=== PATIENT | female | born 1965 | race Two or more races ===

== ENCOUNTER 2017-10-10 02:07 | Emergency (ER) | payer MEDICAID ==
[~2017-10-10] VITALS: Ht 160 cm; Wt 63.5 kg
[2017-10-10] MEDS ORDERED: Sodium Chloride 500ML 500 ML IV ONE (02:29)
[2017-10-10] MEDS ORDERED: Morphine Sulfate 4mg/ml Inj IVP ONE (02:30)
[2017-10-10] MEDS ORDERED: Isovue-300 100ml vial INJ PRN (02:30)
[2017-10-10 03:08] LABS: BASOPHILS % (AUTO) 0.6 % (0.0-2.0); EOSINOPHILS % (AUTO) 2.9 % (0.0-3.0); HEMATOCRIT 36.8 % (37.0-47.0); HEMOGLOBIN 13.1 G/DL (12.0-16.0); LYMPHOCYTES % (AUTO) 27.4 % (20.0-45.0); MEAN CORPUSCULAR VOLUME 89 FL (80-99); NEUTROPHILS % (AUTO) 63.1 % (45.0-75.0); PLATELET COUNT 239 K/UL (150-450); RED BLOOD COUNT 4.15 M/UL (4.20-5.40); RED CELL DISTRIBUTION WIDTH 10.4 % (11.6-14.8); WHITE BLOOD COUNT 7.5 K/UL (4.8-10.8)
[2017-10-10] MEDS ORDERED: Ipratropium 0.02% Inh Soln 2.5ml UD HHN ONE (03:15)
[2017-10-10] MEDS ORDERED: Albuterol ud Inhalation HHN ONE (03:15)
[2017-10-10 03:27] LABS: ANION GAP 9 mmol/L (5-15); BLOOD UREA NITROGEN 22 mg/dL (7-18); CARBON DIOXIDE 26 MMOL/L (21-32); CHLORIDE 104 MMOL/L (98-107); CREATININE 0.7 MG/DL (0.55-1.30); POTASSIUM 3.6 MMOL/L (3.5-5.1); SODIUM 139 MMOL/L (136-145)
[2017-10-10 03:31] LABS: ALANINE AMINOTRANSFERASE 123 U/L (12-78); ALBUMIN 3.7 G/DL (3.4-5.0); ALBUMIN/GLOBULIN RATIO 1.1 (1.0-2.7); ALKALINE PHOSPHATASE 94 U/L (46-116); ASPARTATE AMINO TRANSFERASE 154 U/L (15-37); BILIRUBIN,TOTAL 0.5 MG/DL (0.2-1.0)
[2017-10-10 04:01] LABS: APPEARANCE,URINE CLEAR; BILIRUBIN, URINE NEGATIVE (NEGATIVE); COLOR,URINE PALE YELLOW; GLUCOSE, URINE (UA) NEGATIVE (NEGATIVE); KETONES,URINE NEGATIVE (NEGATIVE); LEUKOCYTE ESTERASE ,URINE NEGATIVE (NEGATIVE); NITRITE,URINE NEGATIVE (NEGATIVE); PH,URINE 8 (4.5-8.0); PROTEIN,URINE NEGATIVE (NEGATIVE); UROBILINOGEN,URINE NORMAL MG/DL (0.0-1.0)
[2017-10-10] MEDS ORDERED: RANITIDINE HCL150 MG ORAL (05:19)
[2017-10-10] MEDS ORDERED: DICYCLOMINE HCL10 MG PO (05:19)
[2017-10-10] MEDS ORDERED: TRAMADOL HCL50 MG ORAL (05:19)
[2017-10-10] MEDS ORDERED: Mylanta II UD 30ml ORAL ONE (05:30)
[2017-10-10] MEDS ORDERED: Dicyclomine HCl 10mg/5ml oral soln ORAL ONE (05:30)
[2017-10-10] MEDS ORDERED: Lidocaine 2% Visc 15ml soln ORAL ONE (05:30)
--- NOTE | 2017-10-10 05:30 | Emergency Room Report ---
History of Present Illness General Chief Complaint: Abdominal Pain Source: Patient Present Illness HPI 52-year-old female presents ED complaining of abdominal pain. Brought in by EMS. Symptoms started a few hours prior to arrival. Sudden onset. Sharp, epigastric, 8 out of 10, radiating to right upper quadrant. Denies fevers or chills. Denies chest pain or shortness of breath. Denies nausea or vomiting. Daughter at bedside states that she has problems with her gallbladder. No other aggravating relieving factors. Denies any other associated symptoms Allergies: Coded Allergies: No Known Allergies (Unverified , 10/10/17) Patient History Past Medical History: asthma Past Surgical History: none Pertinent Family History: none Social History: Denies: smoking, alcohol use, drug use Now: No Immunizations: UTD Reviewed Nursing Documentation: PMH: Agreed; PSxH: Agreed Nursing Documentation-PMH Past Medical History: No History, Except For Hx Asthma: Yes Review of Systems All Other Systems: negative except mentioned in HPI Physical Exam Vital Signs Date Time Temp Pulse Resp B/P (MAP) Pulse Ox O2 Delivery O2 Flow Rate FiO2 10/10/17 01:51 97.1 81 18 141/87 97 Room Air 97.2 10/10/17 03:26 21 Sp02 EP Interpretation: reviewed, normal General Appearance: alert, GCS 15, non-toxic, mild distress Head: normocephalic, atraumatic Eyes: bilateral eye normal inspection, bilateral eye PERRL ENT: hearing grossly normal, normal pharynx, no angioedema, normal voice Neck: full range of motion, supple/symm/no masses Respiratory: chest non-tender, normal breath sounds, speaking full sentences, wheezing Cardiovascular #1: regular rate, rhythm, no edema Cardiovascular #2: 2+ carotid (R), 2+ carotid (L), 2+ radial (R), 2+ radial (L) , 2+ dorsalis pedis (R), 2+ dorsalis pedis (L) Gastrointestinal: normal bowel sounds, soft, non-distended, no guarding, no rebound, tenderness - RUQ/epigastric Rectal: deferred Genitourinary: normal inspection, no CVA tenderness Musculoskeletal: back normal, gait/station normal, normal range of motion, non- tender Neurologic: alert, oriented x3, responsive, motor strength/tone normal, sensory intact, speech normal Psychiatric: judgement/insight normal, memory normal, mood/affect normal, no suicidal/homicidal ideation Reflexes: 3+ bicep (R), 3+ bicep (L), 3+ tricep (R), 3+ tricep (L), 3+ knee (R) , 3+ knee (L) Skin: normal color, no rash, warm/dry, well hydrated Lymphatic: no adenopathy Medical Decision Making Diagnostic Impression: Primary Impression: Gastritis Qualified Codes: K29.00 - Acute gastritis without bleeding Additional Impression: Cholelithiasis Qualified Codes: K80.20 - Calculus of gallbladder without cholecystitis without obstruction ER Course Hospital Course 52-year-old F presents to ED with abdominal pain Differential diagnosis includes-appendicitis, cholecystitis, small bowel obstruction, gastritis, Clinical course Patient placed on stretcher. After initial history and physical I ordered labs , IV fluids, pain medications and CT scan Labs - no leukocytosis, electrolytes ok, AST/ALT mildly elevated, UA unremarkable CT scan shows gallstones, no evidence of cholecystits, no pancreaitis patient wheezing in ED - given breathing treatment Upon reassessment, patient states pain has improved. Discussed findings with patient and family. Patient is safe for discharge pending close outpatient follow-up. We will provide referral to surgery and GI if patient chooses to have gallbladder removed electively I feel this is a highly complex case requiring extensive working including EKG/ Rhythm strip, Xray/CT/US, Blood/urine lab work, repeat exams while in ED, and administration of strong opiates/narcotics for pain control, admission to hospital or close patient follow up. Diagnosis - gastritis, cholelithiasis Stable and discharged to home with Rx tramadol, zantac, bentyl. Followup with PMD/surgery/GI. Return to ED if symptoms recur or worsen Labs Test 10/10/17 03:00 10/10/17 03:55 White Blood Count 7.5 K/UL (4.8-10.8) Red Blood Count 4.15 M/UL (4.20-5.40) Hemoglobin 13.1 G/DL (12.0-16.0) Hematocrit 36.8 % (37.0-47.0) Mean Corpuscular Volume 89 FL (80-99) Mean Corpuscular Hemoglobin 31.6 PG (27.0-31.0) Mean Corpuscular Hemoglobin Concent 35.6 G/DL (32.0-36.0) Red Cell Distribution Width 10.4 % (11.6-14.8) Platelet Count 239 K/UL (150-450) Mean Platelet Volume 5.4 FL (6.5-10.1) Neutrophils (%) (Auto) 63.1 % (45.0-75.0) Lymphocytes (%) (Auto) 27.4 % (20.0-45.0) Monocytes (%) (Auto) 6.0 % (1.0-10.0) Eosinophils (%) (Auto) 2.9 % (0.0-3.0) Basophils (%) (Auto) 0.6 % (0.0-2.0) Sodium Level 139 MMOL/L (136-145) Potassium Level 3.6 MMOL/L (3.5-5.1) Chloride Level 104 MMOL/L (98-107) Carbon Dioxide Level 26 MMOL/L (21-32) Anion Gap 9 mmol/L (5-15) Blood Urea Nitrogen 22 mg/dL (7-18) Creatinine 0.7 MG/DL (0.55-1.30) Estimat Glomerular Filtration Rate > 60 mL/min (>60) Glucose Level 121 MG/DL (74-106) Calcium Level 9.0 MG/DL (8.5-10.1) Total Bilirubin 0.5 MG/DL (0.2-1.0) Aspartate Amino Transf (AST/SGOT) 154 U/L (15-37) Alanine Aminotransferase (ALT/SGPT) 123 U/L (12-78) Alkaline Phosphatase 94 U/L (46-116) Total Protein 7.1 G/DL (6.4-8.2) Albumin 3.7 G/DL (3.4-5.0) Globulin 3.4 g/dL Albumin/Globulin Ratio 1.1 (1.0-2.7) Lipase 275 U/L (73-393) Urine Color Pale yellow Urine Appearance Clear Urine pH 8 (4.5-8.0) Urine Specific [place] 1.015 (1.005-1.035) Urine Protein Negative (NEGATIVE) Urine Glucose (UA) Negative (NEGATIVE) Urine Ketones Negative (NEGATIVE) Urine Occult Blood Negative (NEGATIVE) Urine Nitrite Negative (NEGATIVE) Urine Bilirubin Negative (NEGATIVE) Urine Urobilinogen Normal MG/DL (0.0-1.0) Urine Leukocyte Esterase Negative (NEGATIVE) Urine HCG, Qualitative Negative (NEGATIVE) CT/MRI/US Diagnostic Results CT/MRI/US Diagnostic Results : Imaging Test Ordered: CT A/P Impression Gallstones seen within the gallbladder lumen. The gallbladder is nondistended though there is mild dilatation of both intra-and extrahepatic bile ducts. If the patient's pain is localized to the right upper quadrant or if lab values suggest biliary obstruction, recommend further evaluation with either MRCP or right upper quadrant sonogram. No peripancreatic infiltrative changes to suggest an acute pancreatitis. No obstructive uropathy. No bowel obstruction or evidence of bowel wall thickening. Last Vital Signs Date Time Temp Pulse Resp B/P (MAP) Pulse Ox O2 Delivery O2 Flow Rate FiO2 10/10/17 03:52 85 16 99 Room Air 21 10/10/17 01:51 97.1 141/87 97.2 Disposition: HOME, SELF-CARE Condition: Stable Scripts Albuterol Sulfate* (ALBUTEROL SULFATE MDI*) 8.5 Gm Hfa.aer.ad 2 PUFF INH Q4H PRN for cough/wheezing, #1 EA 0 Refills Prov: Jame Bates MD 10/10/17 Dicyclomine Hcl* (DICYCLOMINE HCL*) 10 Mg Capsule 10 MG PO QID, #20 CAP Prov: Jame Bates MD 10/10/17 Ranitidine Hcl* (ZANTAC*) 150 Mg Tablet 150 MG ORAL TWICE A DAY, #30 TAB Prov: Jame Bates MD 10/10/17 Tramadol Hcl* (ULTRAM*) 50 Mg Tablet 50 MG ORAL Q6H PRN for For Pain, #30 TAB 0 Refills Prov: Jame Bates MD 10/10/17 Referrals: Fernando Stern Payman MD NOT CHOSEN IPA/,REFERRING (PCP) Patient Instructions: Gastritis, Adult, [id number], Cholelithiasis, Easy-to- Read Jame Bates MD Oct 10, 2017 05:30
[2017-10-10] MEDS ORDERED: ALBUTEROL SULF8.5 GM INH (05:31)
[2017-10-10 05:44] VITALS: BP 128/89
--- NOTE | 2017-10-10 09:42 | Diagnostic Imaging Report ---
Clinical Indication: Abdominal pain for 2 days Technique: No oral contrast utilized, per emergency room physician request IV administration nonionic contrast. Venous phase spiral acquisition obtained through the abdomen and pelvis. Multiplanar reconstructions were generated. Total dose length product 698 mGycm. CTDIvol(s) 14.36 mGy. Dose reduction achieved using automated exposure control Comparison: none Findings: The appendix is normal. No evidence of diverticulosis or diverticulitis. No small bowel distention. Distal esophagus, stomach, duodenum are unremarkable. There is equivocally trace free pelvic fluid. No free intraperitoneal air. The gallbladder contains gallstones. Central intrahepatic ducts and common bile duct are mildly dilated, but no downstream obstructive lesion is demonstrated. The liver, pancreas, spleen, adrenals, kidneys are all unremarkable. No pelvic mass or adenopathy. No retroperitoneal or mesenteric mass or adenopathy. Numerous nodules are seen in the bilateral buttocks. There is bilateral buttock fat stranding. The included lung bases demonstrate minimal scarring or atelectasis in the lingula and right middle lobe. Bones are unremarkable. Impression: No acute abnormality Equivocal trace free pelvic fluid, presumably physiologic if real Cholelithiasis. Mild extrahepatic and central intrahepatic biliary ductal dilatation. No definite obstructive lesion. However, correlation with liver function tests is recommended, and consideration for MRCP if clinically indicated Nodules and fat stranding in the bilateral buttocks, presumably related to prior cosmetic procedure Incidental finding of right middle lobe and lingular scarring or atelectasis This agrees with the preliminary interpretation provided overnight by [facility]eradiology service. The CT scanner at [facility] is accredited by the [employer] and the scans are performed using protocols designed to limit radiation exposure to as low as reasonably achievable to attain images of sufficient resolution adequate for diagnostic evaluation.
== END 2017-10-10 05:46 | disposition home or self-care (01) ==
LOC: EDBD 02:07 → EMR 02:33
DX: K29.00 Acute gastritis without bleeding (principal); K80.20 Calculus of gallbladder without cholecystitis without obstruction; J45.909 Unspecified asthma, uncomplicated
CPT/HCPCS: 36415; 74177; 80053; 81003; 81025; 83690; 85025; 94640; 99284; J2270; J7040; Q9967; S0028